=== PATIENT | female | born 1955 | race Caucasian/White ===

== ENCOUNTER → 2024-09-16 07:48 | Outpatient (BNVA) | payer MEDICARE, SELFPAY | PROVIDERS: Referring Provider Family Medicine; Visit Provider Specialist | DX: M54.81 Occipital neuralgia (principal); G24.3 Spasmodic torticollis; M41.9 Scoliosis, unspecified; M47.12 Other spondylosis with myelopathy, cervical region | CPT/HCPCS: 64405; 99204; J1010; J3490 ==

== ENCOUNTER → 2024-11-16 12:25 | Outpatient (BNVA) | payer MEDICARE, SELFPAY | PROVIDERS: PCP Family Medicine; Visit Provider Specialist | DX: G24.3 Spasmodic torticollis (principal) | CPT/HCPCS: 64616; J0585; J9999 ==

== ENCOUNTER → 2025-03-04 11:20 | Outpatient (BNVA) | payer MEDICARE, SELFPAY | PROVIDERS: PCP Family Medicine; Visit Provider Specialist | DX: G24.3 Spasmodic torticollis (principal) | CPT/HCPCS: 64616; J0585; J9999 ==

== ENCOUNTER → 2025-06-03 11:31 | Outpatient (BNVA) | payer MEDICARE, SELFPAY | PROVIDERS: PCP Family Medicine; Visit Provider Specialist | DX: G24.3 Spasmodic torticollis (principal); R03.0 Elevated blood-pressure reading, without diagnosis of hypertension; M54.81 Occipital neuralgia; M47.12 Other spondylosis with myelopathy, cervical region; M41.9 Scoliosis, unspecified | CPT/HCPCS: 64616; J0585; J9999 ==

== ENCOUNTER → 2025-06-29 13:22 | Outpatient (BNVA) | payer MEDICARE, SELFPAY | PROVIDERS: PCP Family Medicine; Visit Provider Family Medicine | DX: S62.350A Nondisplaced fracture of shaft of second metacarpal bone, right hand, initial encounter for closed fracture (principal); X58.XXXA Exposure to other specified factors, initial encounter | CPT/HCPCS: 73120 ==

== ENCOUNTER 2025-07-01 14:25 | Outpatient (CLI) | payer MEDICARE, SELFPAY | END 2025-07-01 14:26 | disposition home or self-care (01) | LOC: SOT 14:26 | PROVIDERS: PCP Family Medicine; Visit Provider Orthopaedic Surgery | DX: Z46.89 Encounter for fitting and adjustment of other specified devices (principal); S69.91XA Unspecified injury of right wrist, hand and finger(s), initial encounter; X58.XXXA Exposure to other specified factors, initial encounter | CPT/HCPCS: 97760; 99204; L3808 ==